=== PATIENT | male | born 1980 | race Caucasian/White ===

== ENCOUNTER 2017-06-25 11:16 | Emergency (ER) | payer OTHER, SELFPAY ==
[2017-06-25] MEDS ORDERED: NA CHLORIDE 0.9% 1,000 ML ONE (14:42)
[2017-06-25 15:09] LABS: Absolute Lymphocytes (CBC) 2.6 K/uL (0.7-4.9); Absolute Monocytes 0.6 K/uL (0.1-1.3); Absolute Neutrophil 4.8 K/uL (1.8-8.0); Basophils % 0.7 % (0-1.3); Eosinophils % 1.4 % (0-4.4); Hematocrit 47.1 % (39.6-49.0); Lymphocytes % 31.8 % (15.3-44.8); MCH 31.8 pg (27.0-35.0); MCV 93.7 fL (80-100); MPV 8.3 fL (7.6-11.3); Monocytes % 7.8 % (3.3-12.3); RBC Red Blood Cell Count 5.03 M/uL (4.33-5.43)
[2017-06-25 15:44] LABS: Bicarbonate 28 mEq/L (21-31); Glucose Level 89 mg/dL (65-120); Sodium Level 138 mEq/L (135-145)
[2017-06-25 15:50] LABS: ALT/SGPT 49 IU/L (10-60); AST/SGOT 27 IU/L (10-42); Albumin 4.5 g/dL (3.2-5.5); Alkaline Phosphatase 63 IU/L (42-121); BUN Blood Urea Nitrogen 15 mg/dL (6-20); Bilirubin Direct 0.1 mg/dL (0-0.2); Bilirubin Total 0.7 mg/dL (0.3-1.2); Creatine Phosphokinase 77 IU/L (22-269); Protein, Total 7.9 g/dL (6.0-8.3)
--- NOTE | 2017-06-25 16:09 | RAD REPORT ---
EXAM DESCRIPTION: CT - Head Brain Wo Cont - 06/25/2017 3:58 pm CLINICAL HISTORY: Headache COMPARISON: None. TECHNIQUE: Computed axial tomography of the head was obtained. IV contrast was not requested. All CT scans are performed using dose optimization technique as appropriate and may include automated exposure control or mA/KV adjustment according to patient size. FINDINGS: An intracranial bleed is not seen . The ventricles are normal in caliber. No extra-axial fluid collection is noted. Fluid within the sinuses/ mastoids is not seen. IMPRESSION: No acute intracranial abnormality is seen. If patient's symptoms persist MRI of the bra in would be recommended.
[2017-06-25 16:22] LABS: Thyroid Stimulating Hormone 1.05 uIU/mL (0.34-5.60)
--- NOTE | 2017-06-25 16:32 | ER ---
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 I rehydrated and felt better. During this week I started having pressure in my head and getting dizzy. Today I feel tingling in my arms and my upper lip. I went to the doctor 2 days ago and everything was fine, he thought I had vertigo. Transition of care: patient was not received from another setting of care. Onset of symptoms was June 19, 2017. Initial Sepsis Screen: Does the patient meet any 2 criteria? No. Patient's initial sepsis screen is negative. Does the patient have a suspected source of infection? No. Patient's initial sepsis screen is negative. Care prior to arrival: None. 11:44 Method Of Arrival: Ambulatory lk1 11:44 Acuity: MARQUES 3 lk1 Triage Assessment: 11:47 General: Appears in no apparent distress. Behavior is calm, cooperative, appropriate lk1 for age. Pain: Denies pain. Neuro: Level of Consciousness is awake, alert, obeys commands, Oriented to person, place, time, situation, Moves all extremities. Full function Gait is steady, Speech is normal, Facial symmetry appears normal, Reports dizziness, fatigue. Historical: - Allergies: 11:47 No Known Allergies; lk1 - PMHx: 11:47 None; lk1 - PSHx: 11:47 None; lk1 - Immunization history:: Adult Immunizations up to date. - Social history:: Smoking status: Patient uses tobacco products, chewing tobacco. Screenin:45 Abuse screen: Denies threats or abuse. Denies injuries from another. Nutritional hb screening: No deficits noted. Tuberculosis screening: No symptoms or risk factors identified. Fall Risk None identified. Assessment: 13:50 General: Appears in no apparent distress. Behavior is calm, cooperative. Pain: Denies hb pain. Neuro: Level of Consciousness is awake, alert, obeys commands, Pupils are PERRLA, Reports dizziness, malaise. 13:50 Cardiovascular: Heart tones S1 S2 present Capillary refill < 3 seconds Patient's skin hb is warm and dry. Respiratory: Airway is patent Trachea midline Respiratory effort is even, unlabored, Respiratory pattern is regular, symmetrical, Breath sounds are clear bilaterally. GI: No signs and/or symptoms were reported involving the gastrointestinal system. : No signs and/or symptoms were reported regarding the genitourinary system. EENT: No signs and/or symptoms were reported regarding the EENT system. Derm: Skin is intact, is healthy with good turgor, Skin is pink, warm \T\ dry. Musculoskeletal: No signs and/or symptoms reported regarding the musculoskeletal system. 14:45 Reassessment: Patient appears in no apparent distress at this time. No changes from hb previously documented assessment. Patient and/or family updated on plan of care and expected duration. Pain level reassessed. Patient is alert, oriented x 3, equal unlabored respirations, skin warm/dry/pink. 15:45 Reassessment: Patient appears in no apparent distress at this time. No changes from hb previously documented assessment. Patient and/or family updated on plan of care and expected duration. Pain level reassessed. Patient is alert, oriented x 3, equal unlabored respirations, skin warm/dry/pink. 16:45 Reassessment: Patient appears in no apparent distress at this time. No changes from hb previously documented assessment. Patient and/or family updated on plan of care and expected duration. Pain level reassessed. Patient is alert, oriented x 3, equal unlabored respirations, skin warm/dry/pink. Vital Signs: 11:48 BP 128 / 82; Pulse 81; Resp 14; Temp 97.3(TE); Pulse Ox 97% on R/A; Weight 104.33 kg [facility] (R); Height 5 ft. 5 in. (165.10 cm) (R); Pain 0/10; 13:45 BP 126 / 78; Pulse 80; Resp 15; Pulse Ox 100% on R/A; Pain 0/10; hb 14:45 BP 122 / 74; Pulse 82; Resp 16; Pulse Ox 100% on R/A; hb 15:45 BP 118 / 68; Pulse 74; Resp 16; Pulse Ox 100% ; hb 11:48 Body Mass Index 38.27 (104.33 kg, 165.10 cm) [facility] ED Course: 11:23 Patient arrived in ED. sb2 11:47 Triage completed. lk1 11:50 Arm band placed on right wrist. lk1 13:28 Gloria Oden, RN is Primary Nurse. hb 13:45 Patient has correct armband on for positive identification. Placed in gown. Bed in low hb position. Call light in reach. Side rails up X 1. 14:28 Jamil Ayala MD is Attending Physician. 14:45 Inserted saline lock: 20 gauge in right antecubital area, using aseptic technique. hb 15:[address] via wheelchair. sw 15:58 CT Head Brain wo Cont In Process Unspecified. EDMS 16:00 CT completed. Patient tolerated procedure well. Patient moved back from CT. 16:31 Lg Pena MD is Referral Physician. 17:07 No provider procedures requiring assistance completed. IV discontinued, intact, hb bleeding controlled, No redness/swelling at site. Pressure dressing applied. Administered Medications: 14:53 Drug: NS 0.9% 1000 ml Route: IV; Rate: 1 bolus; Site: right antecubital; hb 18:47 Follow up: Response: No adverse reaction hb Outcome: 16:31 Discharge ordered by MD. 17:07 Discharged to home ambulatory. hb 17:07 Condition: stable 17:07 Discharge instructions given to patient, Instructed on discharge instructions, follow up and referral plans. medication usage, Demonstrated understanding of instructions, follow-up care, medications. 17:08 Patient left the ED. Signatures: Dispatcher [employer] EDHI Maria Ines Hugo Alicia Nair RN RN lk1 Gloria Oden, TIMOTHY RN Jamil Ayala MD MD Cherelle Barry sb2
--- NOTE | 2017-06-25 16:32 | EDPHYS ---
Physician Documentation [facility] Name: Miky Funez Age: 37 yrs Sex: Male : 1980 Arrival Date: 06/25/2017 Time: 11:23 Bed 17 Private MD: ED Physician Jamil Ayala HPI: 06/25 16:58 This 37 yrs old Male presents to ER via Ambulatory with complaints of POSS gs VERTIGO. 16:58 The patient presents with generalized weakness, lightheadedness. Onset: The gs symptoms/episode began/occurred 1 week(s) ago, and became persistent. 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 Modifying factors: The symptoms are alleviated by nothing, the symptoms are aggravated by nothing. Associated signs and symptoms: Pertinent positives: near-syncope, Pertinent negatives: chest pain, combativeness, confusion, numbness, palpitations, syncope. Severity of symptoms: At their worst the symptoms were moderate in the emergency department the symptoms have improved markedly. Patient's baseline: Neuro: alert and fully oriented, Motor: no deficits, Ambulation: walks without assistance, Speech: normal. The patient has not experienced similar symptoms in the past. The patient has been recently seen by a physician: the patient's primary care provider, did ekg, fluids, scheduled blood work, still with symptoms episodes intermittent, also having throbbing headaches not sudden not thunderclap. Historical: - Allergies: 11:47 No Known Allergies; lk1 - PMHx: 11:47 None; lk1 - PSHx: 11:47 None; lk1 - Immunization history:: Adult Immunizations up to date. - Social history:: Smoking status: Patient uses tobacco products, chewing tobacco. ROS: 16:58 All other systems are negative. gs Exam: 16:58 Head/Face: Normocephalic, atraumatic. Eyes: Pupils equal round and reactive to light, gs extra-ocular motions intact. Lids and lashes normal. Conjunctiva and sclera are non-icteric and not injected. Cornea within normal limits. Periorbital areas with no swelling, redness, or edema. ENT: Nares patent. No nasal discharge, no septal abnormalities noted. Tympanic membranes are normal and external auditory canals are clear. Oropharynx with no redness, swelling, or masses, exudates, or evidence of obstruction, uvula midline. Mucous membranes moist. Neck: Trachea midline, no thyromegaly or masses palpated, and no cervical lymphadenopathy. Supple, full range of motion without nuchal rigidity, or vertebral point tenderness. No Meningismus. Chest/axilla: Normal chest wall appearance and motion. Nontender with no deformity. No lesions are appreciated. Cardiovascular: Regular rate and rhythm with a normal S1 and S2. No gallops, murmurs, or rubs. Normal PMI, no JVD. No pulse deficits. Respiratory: Lungs have equal breath sounds bilaterally, clear to auscultation and percussion. No rales, rhonchi or wheezes noted. No increased work of breathing, no retractions or nasal flaring. Abdomen/GI: Soft, non-tender, with normal bowel sounds. No distension or tympany. No guarding or rebound. No evidence of tenderness throughout. Back: No spinal tenderness. No costovertebral tenderness. Full range of motion. Skin: Warm, dry with normal turgor. Normal color with no rashes, no lesions, and no evidence of cellulitis. MS/ Extremity: Pulses equal, no cyanosis. Neurovascular intact. Full, normal range of motion. Neuro: Awake and alert, GCS 15, oriented to person, place, time, and situation. Cranial nerves II-XII grossly intact. Motor strength 5/5 in all extremities. Sensory grossly intact. Cerebellar exam normal. Normal gait. 16:58 Constitutional: The patient appears alert, awake. Vital Signs: 11:48 BP 128 / 82; Pulse 81; Resp 14; Temp 97.3(TE); Pulse Ox 97% on R/A; Weight 104.33 kg lk1 (R); Height 5 ft. 5 in. (165.10 cm) (R); Pain 0/10; 13:45 BP 126 / 78; Pulse 80; Resp 15; Pulse Ox 100% on R/A; Pain 0/10; hb 14:45 BP 122 / 74; Pulse 82; Resp 16; Pulse Ox 100% on R/A; hb 15:45 BP 118 / 68; Pulse 74; Resp 16; Pulse Ox 100% ; hb 11:48 Body Mass Index 38.27 (104.33 kg, 165.10 cm) lk MDM: 14:28 Patient medically screened. gs 16:58 Differential diagnosis: generalized weakness, GI bleed, idiopathic dizziness, vertigo. Data reviewed: vital signs, nurses notes. Counseling: I had a detailed discussion with the patient and/or guardian regarding: the historical points, exam findings, and any diagnostic results supporting the discharge/admit diagnosis, lab results, radiology results, the need for outpatient follow up. Response to treatment: the patient's symptoms have markedly improved after treatment, and as a result, I will discharge patient. 06/25 14:31 Order name: CBC with Diff; Complete Time: 15:47 gs 06/25 14:31 Order name: Basic Metabolic Panel; Complete Time: 16:30 gs 06/25 14:31 Order name: TSH; Complete Time: 16:30 06/25 14:31 Order name: CPK; Complete Time: 16:30 06/25 14:31 Order name: LFT's; Complete Time: 16:30 06/25 16:30 Order name: Urine Dipstick--Ancillary (enter results); Complete Time: 16:58 06/25 14:31 Order name: Urine Dipstick-Ancillary (obtain specimen); Complete Time: 16:52 06/25 15:48 Order name: CT Head Brain wo Cont; Complete Time: 16:20 gs Administered Medications: 14:53 Drug: NS 0.9% 1000 ml Route: IV; Rate: 1 bolus; Site: right antecubital; hb 18:47 Follow up: Response: No adverse reaction hb Disposition: 06/25/17 16:31 Discharged to Home. Impression: Dizziness and giddiness. - Condition is Stable. - Discharge Instructions: Dizziness. - Medication Reconciliation Form, Thank You Letter, Antibiotic Education, Prescription Opioid Use form. - Follow up: Private Physician; When: 2 - 3 days; Reason: Re-evaluation by your physician. Follow up: Lg Pena MD; When: 2 - 3 days; Reason: Re-evaluation by your physician. Signatures: Dispatcher [employer] Alicia Rodriguez RN RN lk1 Gloria Oden RN RN Jamil Ayala MD MD Corrections: (The following items were deleted from the chart) 16:31 16:31 06/25/2017 16:31 Discharged to Home. Impression: Dizziness and giddiness. gs Condition is Stable. Forms are Medication Reconciliation Form, Thank You Letter, Antibiotic Education, Prescription Opioid Use. Follow up: Private Physician; When: 2 - 3 days; Reason: Re-evaluation by your physician. gs 17:08 16:31 06/25/2017 16:31 Discharged to Home. Impression: Dizziness and giddiness. hb Condition is Stable. Discharge Instructions: Dizziness. Forms are Medication Reconciliation Form, Thank You Letter, Antibiotic Education, Prescription Opioid Use. Follow up: Private Physician; When: 2 - 3 days; Reason: Re-evaluation by your physician. Follow up: Lg Pena; When: 2 - 3 days; Reason: Re-evaluation by your physician. gs
[2017-06-25 16:57] LABS: Urine Blood NEGATIVE (NEG); Urine Glucose NEGATIVE (NEG); Urine Protein NEGATIVE (NEG); Urine pH 6.5 (5.0-7.0)
== END 2017-06-25 17:08 | disposition home or self-care (01) ==
LOC: ER 11:16
DX: R42 Dizziness and giddiness (principal); F17.220 Nicotine dependence, chewing tobacco, uncomplicated
CPT/HCPCS: 36415; 70450; 80048; 80076; 81003; 82550; 84443; 85025; 99284; J7030

== ENCOUNTER 2017-07-04 21:41 | Emergency (ER) | payer OTHER ==
[2017-07-04 22:17] LABS: Absolute Monocytes 0.7 K/uL (0.1-1.3); Absolute Neutrophil 4.5 K/uL (1.8-8.0); Eosinophils % 2.3 % (0-4.4); Hematocrit 44.6 % (39.6-49.0); Lymphocytes % 35.5 % (15.3-44.8); MCH 32.5 pg (27.0-35.0); MCV 93.1 fL (80-100); MPV 8.5 fL (7.6-11.3); Monocytes % 8.4 % (3.3-12.3); RBC Red Blood Cell Count 4.79 M/uL (4.33-5.43)
[2017-07-04 22:34] LABS: Bicarbonate 25 mEq/L (21-31); Glucose Level 128 mg/dL (65-120); Potassium 3.5 mEq/L (3.6-5.0); Sodium Level 137 mEq/L (135-145)
[2017-07-04 22:37] LABS: ALT/SGPT 45 IU/L (10-60); AST/SGOT 27 IU/L (10-42); Albumin 4.2 g/dL (3.2-5.5); Alkaline Phosphatase 60 IU/L (42-121); BUN Blood Urea Nitrogen 14 mg/dL (6-20); Bilirubin Total 0.6 mg/dL (0.3-1.2); Creatine Phosphokinase 64 IU/L (22-269); Protein, Total 6.9 g/dL (6.0-8.3)
[2017-07-04 23:17] LABS: Urine Blood NEGATIVE (NEG); Urine Glucose NEGATIVE (NEG); Urine Protein NEGATIVE (NEG); Urine Specific Gravity <1.005 (1.005-1.030); Urine pH 5.5 (5.0-7.0)
[2017-07-04] MEDS ORDERED: DIPHENHYDRAMINE 50 MG/ML VIAL ONE (23:19)
[2017-07-04] MEDS ORDERED: METOCLOPRAMIDE 10 MG/2mL INJ ONE (23:19)
[2017-07-04] MEDS ORDERED: KETOROLAC 30 MG/ML INJ ONE (23:20)
[2017-07-04] MEDS ORDERED: NA CHLORIDE 0.9% 1,000 ML ONE (23:20)
--- NOTE | 2017-07-05 00:50 | ER ---
Nurse's Notes [facility] Name: Miky Funez Age: 37 yrs Sex: Male : 1980 Arrival Date: 07/04/2017 Time: 21:42 Bed 17 Private MD: Paul Almeida Diagnosis: Headache Presentation: 07/04 21:58 Presenting complaint: Patient states: I'VE BEEN TO THE ER AND MY DOCTOR SEVERAL TIMES bp OVER THE PAST COUPLE WEEKS FOR HEAT EXHAUSTION, DIZZINESS AND HEADACHE, TODAY IT'S WORSE. Transition of care: patient was not received from another setting of care. Onset of symptoms is unknown. Risk Assessment: Do you want to hurt yourself or someone else? Patient reports no desire to harm self or others. Initial Sepsis Screen: Does the patient meet any 2 criteria? No. Patient's initial sepsis screen is negative. Does the patient have a suspected source of infection? No. Patient's initial sepsis screen is negative. Care prior to arrival: None. 21:58 Method Of Arrival: Ambulatory bp 21:58 Acuity: MARQUES 3 bp Triage Assessment: 21:59 Headache History: The patient has had previous headaches and this one is more severe bp than previous episodes. General: Appears in no apparent distress. comfortable, obese, Behavior is cooperative, appropriate for age, anxious. Pain: Complains of pain in forehead and occipital area Pain currently is 6 out of 10 on a pain scale. Pain began 1 day ago. Also complains of photophobia. EENT: No deficits noted. Neuro: Level of Consciousness is awake, alert, obeys commands, Oriented to person, place, time, situation, Appropriate for age. Cardiovascular: No deficits noted. Respiratory: Airway is patent Respiratory effort is even, unlabored, Respiratory pattern is regular, symmetrical. GI: No signs and/or symptoms were reported involving the gastrointestinal system. : No signs and/or symptoms were reported regarding the genitourinary system. Derm: No signs and/or symptoms reported regarding the dermatologic system. Musculoskeletal: Circulation, motion, and sensation intact. Range of motion:. Historical: - Allergies: 21:59 No Known Allergies; bp - Home Meds: 21:59 None [Active]; bp - PMHx: 21:59 None; bp - Immunization history:: Adult Immunizations up to date. - Social history:: Smoking status: Patient uses tobacco products, chewing tobacco. - Ebola Screening: : Patient negative for fever greater than or equal to 101.5 degrees Fahrenheit, and additional compatible Ebola Virus Disease symptoms Patient denies exposure to infectious person Patient denies travel to an Ebola-affected area in the 21 days before illness onset No symptoms or risks identified at this time. Screenin:03 Abuse screen: Denies threats or abuse. Denies injuries from another. Nutritional bp screening: No deficits noted. Tuberculosis screening: No symptoms or risk factors identified. Fall Risk None identified. Assessment: 22:13 General: Appears in no apparent distress. comfortable, Behavior is calm, cooperative, ao appropriate for age. Pain: Complains of pain in headache. Neuro: Level of Consciousness is awake, alert, obeys commands, Oriented to person, place, time, situation, Appropriate for age Moves all extremities. Speech is normal, Facial symmetry appears normal, Pupils are PERRLA. Cardiovascular: Capillary refill < 3 seconds Patient's skin is warm and dry. Respiratory: Airway is patent Respiratory effort is even, unlabored, Respiratory pattern is regular, symmetrical. GI: Abdomen is obese. : No signs and/or symptoms were reported regarding the genitourinary system. EENT: No signs and/or symptoms were reported regarding the EENT system. Derm: Skin is intact, Skin is pink, warm \T\ dry. Skin temperature is warm. Musculoskeletal: No signs and/or symptoms reported regarding the musculoskeletal system. 23:36 Reassessment: Patient appears in no apparent distress at this time. Patient and/or ao family updated on plan of care and expected duration. Pain level reassessed. Patient is alert, oriented x 3, equal unlabored respirations, skin warm/dry/pink. Patient medicated and will stay her to see how meds help. 07/05 00:45 Reassessment: Patient appears in no apparent distress at this time. Patient and/or ao family updated on plan of care and expected duration. Pain level reassessed. Patient is alert, oriented x 3, equal unlabored respirations, skin warm/dry/pink. 01:07 Reassessment: DC instructions given to patient and significant other. patient agree ao with the POC and to follow up with PCP. Vital Signs: 07/04 21:59 BP 131 / 87; Pulse 69; Resp 18; Temp 97.8; Pulse Ox 95% ; Weight 102.06 kg; Height 5 bp ft. 6 in. (167.64 cm); 23:20 BP 113 / 71 Supine; Pulse 59; ao 23:28 BP 112 / 84; Pulse 76; ao 23:28 BP 120 / 81 Standing; Pulse 69; ao 23:36 BP 120 / 75; Pulse 62; Resp 16; Pulse Ox 98% on R/A; ao 07/05 01:07 BP 112 / 70; Pulse 62; Resp 16; Pulse Ox 98% on R/A; Pain 0/10; ao 07/04 21:59 Body Mass Index 36.32 (102.06 kg, 167.64 cm) bp ED Course: 07/04 21:42 Patient arrived in ED. al2 21:42 Paul Almeida MD is Private Physician. al2 21:52 Miky Bennett, TIMOTHY is Primary Nurse. bp 21:53 Cuba Clay NP is PHCP. pm1 21:53 Navdeep Hernandez MD is Attending Physician. pm1 21:59 Triage completed. bp 21:59 Arm band placed on. bp 22:03 Patient has correct armband on for positive identification. Bed in low position. Call bp light in reach. Side rails up X2. Adult w/ patient. 22:13 Inserted saline lock: 20 gauge in right antecubital area, using aseptic technique. ao Blood collected. 22:17 CT Head Brain wo Cont In Process Unspecified. EDMS 22:17 CT completed. Patient tolerated procedure well. Patient moved back from CT. cw1 23:38 Primary Nurse role handed off by Miky Bennett RN ao 23:38 Humble Pinzon RN is Primary Nurse. ao 07/05 00:49 Paul Almeida MD is Referral Physician. pm1 01:05 No provider procedures requiring assistance completed. IV discontinued, intact, ao bleeding controlled, No redness/swelling at site. Pressure dressing applied. Administered Medications: 07/04 23:35 Drug: Benadryl 25 mg Route: IVP; Site: right antecubital; ao 07/05 00:00 Follow up: Response: No adverse reaction ao 07/04 23:35 Drug: Reglan 10 mg Route: IVP; Site: right antecubital; ao 07/05 00:00 Follow up: Response: No adverse reaction ao 07/04 23:36 Drug: NS 0.9% 1000 ml Route: IV; Rate: 1000 ml; Site: right antecubital; ao 07/05 00:00 Follow up: IV Status: Completed infusion; IV Intake: 1000ml ao 07/04 23:36 Drug: TORadol 30 mg Route: IVP; Site: right antecubital; ao 07/05 00:00 Follow up: Response: No adverse reaction ao Intake: 00:00 IV: 1000ml; Total: 1000ml. ao Outcome: 00:50 Discharge ordered by pm1 01:06 Discharged to home ambulatory. ao 01:06 Condition: stable 01:06 Discharge instructions given to patient, Instructed on discharge instructions, follow up and referral plans. Demonstrated understanding of instructions, follow-up care, medications, Prescriptions given X 1. 01:08 Patient left the ED. ao Signatures: Dispatcher [employer] Courtney Bal cw1 Humble Pinzon RN RN Cuba Chandra NP [employer] pm1 Miky Bennett RN RN Davina Cerda
--- NOTE | 2017-07-05 00:50 | EDPHYS ---
Physician Documentation [facility] Name: Miky Funez Age: 37 yrs Sex: Male : 1980 Arrival Date: 07/04/2017 Time: 21:42 Bed 17 Private MD: Paul Almeida ED Physician Navdeep Hernandez HPI: 07/04 22:00 This 37 yrs old Male presents to ER via Ambulatory with complaints of pm1 Headache, Nausea. 22:00 The patient complains of pain to the forehead, left occipital area and right occipital pm1 area. The patient describes the headache as aching. 22:00 Onset: The symptoms/episode began/occurred 2 week(s) ago. pm1 22:00 Associated signs and symptoms: Pertinent positives: nausea, Pertinent negatives: fever, pm1 vision changes, vision loss, vomiting, weakness, vertigo. Severity of symptoms: in the emergency department the pain is unchanged. Headache History: Denies prior headaches. The symptoms are alleviated by nothing. the symptoms are aggravated by nothing. Seen in the ER and by his PCP for the same complaint. 22:00 Seen here on 06/25 for the same complaint. CT head and labs negative. Patient discharged pm1 home to follow up with PCP. Followed up with his PCP and diagnosed with possible migraine headaches. Patient presenting today with the same presentation of headache. Patient is concerned that it might be a headache from dehydration. Historical: - Allergies: 21:59 No Known Allergies; bp - Home Meds: 21:59 None [Active]; bp - PMHx: 21:59 None; bp - Immunization history:: Adult Immunizations up to date. - Social history:: Smoking status: Patient uses tobacco products, chewing tobacco. - Ebola Screening: : Patient negative for fever greater than or equal to 101.5 degrees Fahrenheit, and additional compatible Ebola Virus Disease symptoms Patient denies exposure to infectious person Patient denies travel to an Ebola-affected area in the 21 days before illness onset No symptoms or risks identified at this time. ROS: 22:00 Constitutional: Negative for fever, chills, and weight loss, Eyes: Negative for injury, pm1 pain, redness, and discharge, ENT: Negative for injury, pain, and discharge, Neck: Negative for injury, pain, and swelling, Cardiovascular: Negative for chest pain, palpitations, and edema, Respiratory: Negative for shortness of breath, cough, wheezing, and pleuritic chest pain, Abdomen/GI: Negative for abdominal pain, nausea, vomiting, diarrhea, and constipation, Back: Negative for injury and pain, : Negative for injury, bleeding, discharge, and swelling, MS/Extremity: Negative for injury and deformity, Skin: Negative for injury, rash, and discoloration. 22:00 Neuro: Positive for headache, Negative for dizziness, numbness, tingling, weakness. Exam: 22:00 Constitutional: This is a well developed, well nourished patient who is awake, alert, pm1 and in no acute distress. Head/Face: Normocephalic, atraumatic. Eyes: Pupils equal round and reactive to light, extra-ocular motions intact. Lids and lashes normal. Conjunctiva and sclera are non-icteric and not injected. Cornea within normal limits. Periorbital areas with no swelling, redness, or edema. ENT: Nares patent. No nasal discharge, no septal abnormalities noted. Tympanic membranes are normal and external auditory canals are clear. Oropharynx with no redness, swelling, or masses, exudates, or evidence of obstruction, uvula midline. Mucous membranes moist. Neck: Trachea midline, no thyromegaly or masses palpated, and no cervical lymphadenopathy. Supple, full range of motion without nuchal rigidity, or vertebral point tenderness. No Meningismus. Chest/axilla: Normal chest wall appearance and motion. Nontender with no deformity. No lesions are appreciated. Cardiovascular: Regular rate and rhythm with a normal S1 and S2. No gallops, murmurs, or rubs. Normal PMI, no JVD. No pulse deficits. Respiratory: Lungs have equal breath sounds bilaterally, clear to auscultation and percussion. No rales, rhonchi or wheezes noted. No increased work of breathing, no retractions or nasal flaring. Abdomen/GI: Soft, non-tender, with normal bowel sounds. No distension or tympany. No guarding or rebound. No evidence of tenderness throughout. Back: No spinal tenderness. No costovertebral tenderness. Full range of motion. Skin: Warm, dry with normal turgor. Normal color with no rashes, no lesions, and no evidence of cellulitis. MS/ Extremity: Pulses equal, no cyanosis. Neurovascular intact. Full, normal range of motion. 22:00 Neuro: Orientation: is normal, Mentation: is normal, Cranial nerves: CN II- XII are normal as tested, Cerebellar function: normal finger to nose testing, Motor: is normal, moves all fours, strength is 5/5 in all extremities, Sensation: is normal, no obvious gross deficits, Gait: is steady. Vital Signs: 21:59 BP 131 / 87; Pulse 69; Resp 18; Temp 97.8; Pulse Ox 95% ; Weight 102.06 kg; Height 5 bp ft. 6 in. (167.64 cm); 23:20 BP 113 / 71 Supine; Pulse 59; ao 23:28 BP 112 / 84; Pulse 76; ao 23:28 BP 120 / 81 Standing; Pulse 69; ao 23:36 BP 120 / 75; Pulse 62; Resp 16; Pulse Ox 98% on R/A; ao 07/05 01:07 BP 112 / 70; Pulse 62; Resp 16; Pulse Ox 98% on R/A; Pain 0/10; ao 07/04 21:59 Body Mass Index 36.32 (102.06 kg, 167.64 cm) bp MDM: 07/04 21:58 Patient medically screened. pm1 07/05 00:30 ED course: Likely migraine or tension headache. Patient's pain 1/10 with medications pm1 administered. 00:49 Data reviewed: vital signs. Data interpreted: Pulse oximetry: on room air is 98 %. pm1 Interpretation: normal. Counseling: I had a detailed discussion with the patient and/or guardian regarding: the historical points, exam findings, and any diagnostic results supporting the discharge/admit diagnosis, lab results, radiology results, the need for outpatient follow up, to return to the emergency department if symptoms worsen or persist or if there are any questions or concerns that arise at home. 07/04 22:00 Order name: CBC with Diff pm1 07/04 22:00 Order name: CMP pm1 07/04 22:00 Order name: CPK pm1 07/04 22:01 Order name: CBC with Automated Diff; Complete Time: 22:55 EDMS 07/04 22:01 Order name: Comprehensive Metabolic Panel; Complete Time: 22:55 EDMS 07/04 22:01 Order name: Creatine Phosphokinase; Complete Time: 22:55 EDMS 07/04 22:00 Order name: IV Saline Lock; Complete Time: 22:13 pm1 07/04 22:00 Order name: CT Head Brain wo Cont; Complete Time: 17:35 pm1 07/04 22:00 Order name: Urine Dipstick-Ancillary (obtain specimen); Complete Time: 23:36 pm1 07/04 23:06 Order name: Urine Dipstick--Ancillary (enter results); Complete Time: 17:35 rg2 07/04 23:19 Order name: Orthostatic Blood Pressure; Complete Time: 23:38 pm1 Administered Medications: 07/04 23:35 Drug: Benadryl 25 mg Route: IVP; Site: right antecubital; ao 07/05 00:00 Follow up: Response: No adverse reaction ao 07/04 23:35 Drug: Reglan 10 mg Route: IVP; Site: right antecubital; ao 07/05 00:00 Follow up: Response: No adverse reaction ao 07/04 23:36 Drug: NS 0.9% 1000 ml Route: IV; Rate: 1000 ml; Site: right antecubital; ao 07/05 00:00 Follow up: IV Status: Completed infusion; IV Intake: 1000ml ao 07/04 23:36 Drug: TORadol 30 mg Route: IVP; Site: right antecubital; ao 07/05 00:00 Follow up: Response: No adverse reaction ao Disposition: 07/05/17 00:50 Discharged to Home. Impression: Headache. - Condition is Stable. - Discharge Instructions: General Headache Without Cause. - Prescriptions for Fiorinal 50- 325-40 mg Oral Capsule - take 1 capsule by ORAL route every 4 hours As needed - not to exceed 6 capsules per day; 20 capsule. - Medication Reconciliation Form, Thank You Letter form. - Follow up: Emergency Department; When: As needed; Reason: Worsening of condition. Follow up: Paul Almeida MD; When: 2 - 3 days; Reason: Recheck today's complaints, Continuance of care, Re-evaluation by your physician. - Problem is new. - Symptoms have improved. Addendum: 07/08/2017 08:46 Co-signature as Attending Physician, Navdeep Hernandez MD I agree with the assessment and w a plan of care. Signatures: Dispatcher [employer] Humble Carlton RN RN ao [place] Clay NP [employer] pm1 Navdeep Hernandez MD MD wa Peltier, Brian, RN RN bp Corrections: (The following items were deleted from the chart) 07/05 01:08 00:50 07/05/2017 00:50 Discharged to Home. Impression: Headache. Condition is Stable. ao Forms are Medication Reconciliation Form, Thank You Letter, Antibiotic Education, Prescription Opioid Use. Follow up: Emergency Department; When: As needed; Reason: Worsening of condition. Follow up: Paul Almeida; When: 2 - 3 days; Reason: Recheck today's complaints, Continuance of care, Re-evaluation by your physician. Problem is new. Symptoms have improved. pm1
--- NOTE | 2017-07-05 08:49 | RAD REPORT ---
EXAM DESCRIPTION: CT - Head Brain Wo Cont - 07/05/2017 3:14 am CLINICAL HISTORY: Weakness, dizziness, possible heat exhaustion Insert nighthawk COMPARISON: CT head June 25 TECHNIQUE: Axial 5 mm thick images of the head were obtained without IV contrast. All CT scans are performed using dose optimization technique as appropriate and may include automated exposure control or mA/KV adjustment according to patient size. FINDINGS: No intracranial hemorrhage, mass, edema or shift of mid-line structures. No acute infarcti on changes seen. No abnormal extra-axial fluid collections. Ventricles are normal. Mastoid air cells and visualized portions of the paranasal sinuses are clear. No acute bony findings. IMPRESSION: Negative non-contrast CT head examination. No identifiable change from the June 25 study. The patient has had [address] head imaging. If the patient has continued, unexp lained symptoms, MR imaging may be helpful to evaluate for any abnormalities that may be occult on CT imaging.
== END 2017-07-05 01:08 | disposition home or self-care (01) ==
LOC: ER 21:41
DX: R51 Headache (principal)
CPT/HCPCS: 36415; 70450; 80053; 81003; 82550; 85025; 96374; 96375; 99284; J2765; J7030